=== PATIENT | female | born 1930 | race Caucasian/White ===

== ENCOUNTER 2018-12-23 15:28 | Outpatient (CLI) | payer MEDICARE, MEDICAID ==
--- NOTE | 2018-12-23 16:00 | RAD ---
CHEST 2 VIEWS: HISTORY: Cough. COMPARISON: 07/04/2012. FINDINGS: Heart size is normal. Mild stable increased linear and interstitial markings bilaterally. No conflu ent pneumonia, overt edema, or pleural effusion. IMPRESSION: No significant acute intrathoracic disease. No evidence for pneumonia. Stable vertical height loss of one of the lower thoracic vertebral bodies. POS: [facility]
== END 2018-12-23 15:29 | disposition home or self-care (01) ==
LOC: BICRAD 15:28
PROVIDERS: ATTEND Internal Medicine
DX: R05 Cough (principal)
CPT/HCPCS: 36415; 71046; 80053; 82607; 82746; 83540; 83550; 85025

== ENCOUNTER 2019-01-10 12:52 | Outpatient (CLI) | payer MEDICARE, MEDICAID ==
--- NOTE | 2019-01-10 13:35 | CT ---
CT Brain WO Con History: [A 42.85. Are 29.6. Weakness. Dizziness.] Comparison: None. Findings: No acute hemorrhage or infarct. No midline shift or mass effect. Mild right periventricular subcortical deep white matter microangiopathic changes. Mild atrophy. Calvarium is intact. Paranasal sinuses and mastoids are clear. Impression: Chronic findings. No acute intracranial abnormality.
== END 2019-01-10 12:53 | disposition home or self-care (01) ==
LOC: SCSCT 12:52
PROVIDERS: ATTEND Internal Medicine
DX: R42 Dizziness and giddiness (principal); R51 Headache; R29.6 Repeated falls; G31.89 Other specified degenerative diseases of nervous system
CPT/HCPCS: 70450